=== PATIENT | female | born 1950 | race Two or more races ===

== ENCOUNTER 2016-11-15 18:35 | Emergency (ER) | payer MEDICARE ==
[~2016-11-15] VITALS: Ht 170.2 cm; Wt 86.2 kg
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
--- NOTE | 2016-11-15 18:41 | NUR ---
DR RUDOLPH AT BEDSIDE FOR EVAL.
--- NOTE | 2016-11-15 19:44 | NUR ---
DR RUDOLPH ON THE PHONE WITH DR COLEY (ORTHO)
[2016-11-15] MEDS ORDERED: IBUPROFEN 600 MG TABLET PO ONE ×2 (19:46→20:00)
--- NOTE | 2016-11-15 19:51 | NUR ---
MOTRIN 600MG GIVEN PER ERMD VERBAL ORDER.
--- NOTE | 2016-11-15 20:13 | NUR ---
RADIOLOGY AT BEDSIDE FOR RT KNEE XRAY.
--- NOTE | 2016-11-15 21:33 | NUR ---
ANKLE SPLINT AND KNEE IMMOBILIZER APPLIED. Patient discharged to home in stable condition. Written and verbal after care instructions given. Patient verbalizes understanding of instruction.
[2016-11-15 21:34] VITALS: BP 132/84
== END 2016-11-15 21:35 | disposition home or self-care (01) ==
LOC: ER 18:38
DX: S82.861A Displaced Maisonneuve's fracture of right leg, initial encounter for closed fracture (principal); S82.831A Other fracture of upper and lower end of right fibula, initial encounter for closed fracture; S99.911A Unspecified injury of right ankle, initial encounter; W01.0XXA Fall on same level from slipping, tripping and stumbling without subsequent striking against object, initial encounter; Y93.E1 Activity, personal bathing and showering; Y92.091 Bathroom in other non-institutional residence as the place of occurrence of the external cause; Y99.8 Other external cause status; I10 Essential (primary) hypertension; E03.9 Hypothyroidism, unspecified
CPT/HCPCS: 29505; 73564; 73610; 99284; A4606; Z7610

== ENCOUNTER 2019-09-06 10:38 | Emergency (ER) | payer MEDICARE ==
[~2019-09-06] VITALS: Ht 170.2 cm; Wt 85.3 kg
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
[2019-09-06] MEDS ORDERED: LEVO100T9 PO (10:49)
--- NOTE | 2019-09-06 10:55 | NUR ---
SEEN AND EXAMINED BY
[2019-09-06] MEDS ORDERED: HYDROMORPHONE INJ 2 MG/ML DISP.SYRIN IV ONE (11:00)
[2019-09-06] MEDS ORDERED: ONDANSETRON HCL/PF 4 MG/2 ML VIAL IVP ONE (11:00)
--- NOTE | 2019-09-06 11:04 | NUR ---
ENDOCRINOLOGIST AT BEDSIDE FOR XRAY.
[2019-09-06] MEDS ORDERED: ONDANSETRON HCL/PF 4 MG/2 ML VIAL ONE (11:05)
[2019-09-06] MEDS ORDERED: HYDROMORPHONE 1 MG/1 ML DISP.SYRIN ONE (11:05)
[2019-09-06 11:46] VITALS: BP 125/62
--- NOTE | 2019-09-06 12:31 | NUR ---
IV removed. Catheter intact and site benign. Pressure and 4x4 applied to site. No bleeding noted. Patient discharged to home in stable condition. Written and verbal after care instructions given. Patient verbalizes understanding of instruction.
== END 2019-09-06 12:33 | disposition home or self-care (01) ==
LOC: ER 10:39
DX: S82.491A Other fracture of shaft of right fibula, initial encounter for closed fracture (principal); I10 Essential (primary) hypertension; E03.9 Hypothyroidism, unspecified; Z98.890 Other specified postprocedural states; Z60.2 Problems related to living alone; Z79.899 Other long term (current) drug therapy; W18.39XA Other fall on same level, initial encounter; Y93.89 Activity, other specified; Y92.89 Other specified places as the place of occurrence of the external cause; Y99.8 Other external cause status
CPT/HCPCS: 29505; 73502; 73564; 73610; 96374; 96375; 99284; J1170; J2405

== ENCOUNTER 2019-09-21 19:32 | Emergency (ER) | payer MEDICARE ==
[~2019-09-21] VITALS: Ht 165.1 cm; Wt 95.3 kg
[~2019-09-21 19:32] MED LIST: LEVO100T9 PO
--- NOTE | 2019-09-21 19:40 | NUR ---
C/O R FOOT PAIN, HEMATOMA & SWELLING X4 DAYS. PT REPORTS GLF 2 WEEKS AGO. REPORTS PAIN LEVEL 7/10. NO REDNESS. DENIES SOB, DIZZINESS, WEAKNESS. NO ACUTE DISTRESS NOTED. MADE COMFORTABLE AND READY FOR EVAL.
--- NOTE | 2019-09-21 20:24 | NUR ---
XRAY AT BEDSIDE
--- NOTE | 2019-09-21 21:50 | NUR ---
FLEXIBLE NANNY AT BEDSIDE FOR BOOT APPLICATION
--- NOTE | 2019-09-21 21:57 | NUR ---
Patient discharged to home in stable condition. Written and verbal after care instructions given. Patient verbalizes understanding of instruction.
[2019-09-21 22:19] VITALS: BP 137/76
== END 2019-09-21 21:57 | disposition home or self-care (01) ==
LOC: ER 19:37
DX: S92.311A Displaced fracture of first metatarsal bone, right foot, initial encounter for closed fracture (principal); I10 Essential (primary) hypertension; E03.9 Hypothyroidism, unspecified; Z98.890 Other specified postprocedural states; Z60.2 Problems related to living alone; Z79.899 Other long term (current) drug therapy; W18.39XA Other fall on same level, initial encounter; Y93.89 Activity, other specified; Y92.89 Other specified places as the place of occurrence of the external cause; Y99.8 Other external cause status
CPT/HCPCS: 73630-TC